=== PATIENT | female | born 1955 | race Caucasian/White ===

== ENCOUNTER 2019-04-30 20:44 | Emergency (ER) | payer OTHER ==
[~2019-04-30] VITALS: Ht 162.6 cm; Wt 90.7 kg
[2019-04-30 20:45] VITALS: BP_SYST 228
--- NOTE | 2019-04-30 20:45 | NUR ---
Patient to ER bed 1 for evaluation. Side rails up.
--- NOTE | 2019-04-30 20:46 | NUR ---
Pt C/O RT forehead abrasion and hematoma S/P fall. Pt states [place] tri[place] over the leash. Pt struck her face on the ground denies any KO, N/V, blurred vision, head, neck or back pain. Reports she is on Plavix. Pt is able to ambulate with steady gait to the bed without assistance. Will continue to monitor.
--- NOTE | 2019-04-30 20:51 | NUR ---
ER Dr. Orr at bedside examining patient.
[2019-04-30] MEDS ORDERED: MORPHINE 4 MG/ML INJ. SYRINGE IM ONE (21:15)
[2019-04-30 21:37] LABS: BASOPHILS # (AUTO) 0.1 K/uL (0.0-0.2); BASOPHILS % (AUTO) 0.8 % (0.0-2.0); EOSINOPHILS # (AUTO) 0.1 K/uL (0.0-0.4); HEMOGLOBIN 14.5 g/dL (12.0-16.0); LYMPHOCYTES # (AUTO) 2.2 K/uL (1.0-5.5); LYMPHOCYTES % (AUTO) 36.6 % (20.5-51.5); MEAN CORPUSCULAR HEMOGLOBIN 34 pg (27-31); MEAN CORPUSCULAR HGB CONC 35 % (32-36); MEAN CORPUSCULAR VOLUME 99 fL (79.0-98.0); MONOCYTES # (AUTO) 0.4 K/uL (0.0-1.0); MONOCYTES % (AUTO) 7.2 % (1.7-9.3); NEUTROPHILS # (AUTO) 3.3 K/uL (1.8-7.7); NEUTROPHILS % (AUTO) 53.4 % (40.0-70.0); PLATELET COUNT (AUTO) 192 K/uL (130-430); RED BLOOD CELL COUNT(AUTO) 4.23 MIL/uL (4.2-6.2); WHITE BLOOD COUNT (AUTO) 6.1 K/uL (4.8-10.8)
[2019-04-30 21:43] LABS: CALCIUM 9.2 mg/dL (8.4-11.0); CREATININE 0.81 mg/dL (0.55-1.30); POTASSIUM 3.5 mmol/L (3.5-5.1)
[2019-04-30 21:48] LABS: ALBUMIN 4.3 g/dL (3.4-4.8); TOTAL BILIRUBIN 0.6 mg/dL (0.0-1.0)
--- NOTE | 2019-04-30 22:32 | NUR ---
Pt states improvement in pain after the Morphine administration. Will continue to monitor.
[2019-04-30] MEDS ORDERED: ONDANSETRON 4 MG ODT TAB PO ONE (23:00)
--- NOTE | 2019-04-30 23:11 | NUR ---
Pt is resting in bed comfortably in bed, no acute distress noted at this time. Will continue to monitor.
--- NOTE | 2019-05-01 00:46 | NUR ---
Patient to be transferred to [facility] ER. Is being transferred due to higher level of care. Receiving facility has accepting physician and available space. ER physician has signed transfer form. Patient or responsible constitution party has agreed to transfer and signed form. Patient belongings inventoried and will be sent with patient. Copy of nursing notes, lab reports, EKG, Physicians Orders and X-rays to be sent with patient. Report called to Nadia PINTO at receiving facility. Receiving physician is Renee. Ambulance service has been called for transfer. ETA is [id number].
[2019-05-01] MEDS ORDERED: ONDANSETRON HCL 4 MG/2 ML VIAL IVP ONE (01:00)
[2019-05-01] MEDS ORDERED: MORPHINE 2 MG/ML INJ. SYRINGE IVP ONE (01:00)
--- NOTE | 2019-05-01 01:05 | NUR ---
[facility] transport on scene for transfer.
--- NOTE | 2019-05-01 01:17 | NUR ---
Nadia Stevens RN has been updated of the IV start and the medication administration prior to transfer. Pt tolerated medication well, VSS upon transfer.
[2019-05-01 01:19] VITALS: BP_SYST 158
== END 2019-05-01 01:17 | disposition home or self-care (01) ==
LOC: SED 20:44
DX: S00.83XA Contusion of other part of head, initial encounter (principal); S00.211A Abrasion of right eyelid and periocular area, initial encounter; I10 Essential (primary) hypertension; Z88.8 Allergy status to other drugs, medicaments and biological substances; W01.0XXA Fall on same level from slipping, tripping and stumbling without subsequent striking against object, initial encounter; Y93.89 Activity, other specified; Y92.89 Other specified places as the place of occurrence of the external cause; Y99.8 Other external cause status
CPT/HCPCS: 36415; 70450; 70486; 80053; 85025; 85610; 85730; 96372; 96374; 96375; 99284; J2270 ×2; J2405; Q0162